=== PATIENT | male | born 1940 | race Caucasian/White ===

== ENCOUNTER 2022-02-09 15:48 | Inpatient (IN) | payer OTHER ==
[~2022-02-09] VITALS: Ht 172.7 cm; Wt 103.9 kg
[2022-02-09 16:45] LABS: BASOPHILS ABSOLUTE AUTO 0.04 K/mm3 (0.00-0.23); BASOPHILS PERCENT AUTO 0 % (0-2); EOSINOPHILS PERCENT AUTO 0 % (0-6); Hematocrit 36.2 % (37.0-53.0); Hemoglobin 13.3 g/dL (13.5-17.5); IMMATURE GRAN ABSOLUTE AUTO 0.13 K/mm3 (0.00-0.10); IMMATURE GRAN PERCENT AUTO 1 % (0-1); LYMPHOCYTES ABSOLUTE AUTO 0.52 K/mm3 (0.84-5.20); LYMPHOCYTES PERCENT AUTO 2 % (21-46); MONOCYTES ABSOLUTE AUTO 0.93 K/mm3 (0.16-1.47); MONOCYTES PERCENT AUTO 4 % (4-13); Mean Corpuscular HGB 35.5 pg (26.0-34.0); Mean Corpuscular HGB Conc 36.7 g/dL (31.5-36.5); Mean Corpuscular Volume 97 fL (80-100); Mean Platelet Volume 9.1 fL (9.1-12.4); NEUTROPHILS ABSOLUTE AUTO 20.97 K/mm3 (1.96-9.15); NEUTROPHILS PERCENT AUTO 93 % (41-73); Platelet Count 287 K/mm3 (150-400); RDW Coefficient Variation 12.2 % (11.7-14.2); RDW Standard Deviation 43.4 fL (35.1-46.3); Red Blood Cell Count 3.75 M/mm3 (4.30-5.90); White Blood Cell Count 22.59 K/mm3 (4.00-11.30)
[2022-02-09 16:58] LABS: Alanine Aminotransfer (ALT/SGP 29 U/L (12-78); Albumin, Blood 3.5 g/dL (3.4-5.0); Albumin/Globulin Ratio 0.9 (0.8-1.8); Alk Phos 74 U/L (50-136); Anion Gap 7 mmol/L (6-16); Aspartate Aminotrans (AST/SGOT 28 U/L (12-37); Bilirubin, Total 1.4 mg/dL (0.1-1.0); Blood Urea Nitrogen 13 mg/dL (8-24); Bun/Creatinine Ratio 14.6 (12.0-20.0); CO2, Blood 23 mmol/L (21-32); Calcium, Blood 8.6 mg/dL (8.5-10.1); Chloride, Blood 93 mmol/L (98-108); Creatinine, Blood 0.89 mg/dL (0.60-1.20); Globulin, Blood 3.9 g/dL (2.2-4.0); Glomerular Filtration Rate >60 (60-); Glucose, Blood 119 mg/dL (70-99); Potassium, Blood 4.7 mmol/L (3.5-5.5); Sodium, Blood 123 mmol/L (136-145); Total Protein, Blood 7.4 g/dL (6.4-8.2)
[2022-02-09 20:38] LABS: Source, Urine Clean Catch
[2022-02-09 20:40] LABS: Appearance, Urine Clear (Clear); Bilirubin, Urine Neg (Neg); Blood, Urine Neg (Neg); Color, Urine Yellow (P-Yellow); Glucose Qualitative, Urine Neg (Neg); Ketones, Urine 1+ (Neg); Leukocyte Esterase, Urine Neg (Neg); Nitrite, Urine Neg (Neg); Protein, Urine 1+ (Neg); Specific Gravity, Urine 1.015 (1.003-1.022); Urobilinogen, Urine NORM (Normal)
[2022-02-09] MEDS ORDERED: LOSA50 PO (23:44)
[2022-02-09] MEDS ORDERED: METO50ER PO (23:44)
--- NOTE | 2022-02-10 00:31 | NUR ---
ADMIT NOTE HANDOFF RECEIVED FROM [employer] REPRESENTATIVELOLITA AGUILAR. PT ARRIVED TO FLOOR VIA GURNEY. PT ORIENTED TO UNIT. TELEMETRY IN PLACE. CALL BUTTON WITHIN REACH
[2022-02-10 01:24] LABS: Influenza A, PCR NEGATIVE (NEGATIVE); Influenza B, PCR NEGATIVE (NEGATIVE); Resp Syncytial Virus, PCR NEGATIVE (NEGATIVE); SARS-Cov-2 (COVID-19) PCR, MMC NEGATIVE (NEGATIVE)
--- NOTE | 2022-02-10 04:04 | NUR ---
SHIFT SUMMARY ADMITTED FOR ACUTE CHF, POSSIBLE PNEUMONIA. FULL CODE. PLAN IS TO [facility]. TELEMETRY IN PLACE: NSR @ 92 BPM. HE IS WEAK. SOB W/EXERTION. CARDIAC DIET. IV ANTIB RX ARE SCHEDULED. LYMPHADEMA IN BLE. CIWA CHECKS Q4 HOURS. HE DOES HAVE SEVERE TREMORS BUT HE STATES THAT IS HIS BASELINE. HE DENIES OTHER S/SX.
[2022-02-10 05:03] LABS: BASOPHILS ABSOLUTE AUTO 0.03 K/mm3 (0.00-0.23); BASOPHILS PERCENT AUTO 0 % (0-2); EOSINOPHILS PERCENT AUTO 1 % (0-6); Hematocrit 32.1 % (37.0-53.0); Hemoglobin 11.4 g/dL (13.5-17.5); IMMATURE GRAN ABSOLUTE AUTO 0.23 K/mm3 (0.00-0.10); IMMATURE GRAN PERCENT AUTO 1 % (0-1); LYMPHOCYTES ABSOLUTE AUTO 0.46 K/mm3 (0.84-5.20); LYMPHOCYTES PERCENT AUTO 2 % (21-46); MONOCYTES ABSOLUTE AUTO 0.76 K/mm3 (0.16-1.47); MONOCYTES PERCENT AUTO 4 % (4-13); Mean Corpuscular HGB 35.4 pg (26.0-34.0); Mean Corpuscular HGB Conc 35.5 g/dL (31.5-36.5); Mean Corpuscular Volume 100 fL (80-100); Mean Platelet Volume 9.5 fL (9.1-12.4); NEUTROPHILS ABSOLUTE AUTO 19.77 K/mm3 (1.96-9.15); NEUTROPHILS PERCENT AUTO 93 % (41-73); Platelet Count 250 K/mm3 (150-400); RDW Coefficient Variation 12.7 % (11.7-14.2); RDW Standard Deviation 46.4 fL (35.1-46.3); Red Blood Cell Count 3.22 M/mm3 (4.30-5.90); White Blood Cell Count 21.35 K/mm3 (4.00-11.30)
[2022-02-10 05:31] LABS: Anion Gap 8 mmol/L (6-16); Blood Urea Nitrogen 14 mg/dL (8-24); CO2, Blood 22 mmol/L (21-32); Calcium, Blood 7.9 mg/dL (8.5-10.1); Chloride, Blood 95 mmol/L (98-108); Creatinine, Blood 0.94 mg/dL (0.60-1.20); Glomerular Filtration Rate >60 (60-); Glucose, Blood 113 mg/dL (70-99); Potassium, Blood 4.5 mmol/L (3.5-5.5); Sodium, Blood 125 mmol/L (136-145)
[2022-02-10] MEDS ORDERED: AMLO10 PO (15:22)
--- NOTE | 2022-02-10 16:56 | NUR ---
SUMMARY- PT A/O X4. BASELINE HAD TREMORS. CIWAA ASSESSED T/O SHIFT, MEDICATED ONE TIME WITH ATIVAN 1MG, HELPFUL WITH ANXIETY. PT AMBULATES SBA WITH WALKER. WORKED WITH PT/OT TODAY. LEGS WITH SEVERE EDEMA. PLACED RAUL HOSE. STARTED LASIX, DIURESING PT. LUNGS CLEAR BUT HAS MILD SOB WITH EXERTION. TOLERATING PO INTAKE, HAD BM TODEY. USES URINAL. USES CALL LIGHT APPROPRIATELY, KNOWS LIMITS.
--- NOTE | 2022-02-11 04:35 | NUR ---
SHIFT SUMMARY ADMITTED FOR NEW DX OF CHF. FULL CODE. ALSO POSSIBLE PNEUMONIA/SEPSIS. PLAN IS TO [facility]. CURRY'S Q4. TREMORS HAVE IMPROVED THIS SHIFT. DENIES ANXIETY THIS SHIFT. STANDBY ASSIST - BRP. TYLENOL GIVEN FOR CHRONIC LEG PAIN - HE HAS LYMPHODEMA. HE ALLOWED US TO PUT ON RAUL HOSE, BUT ONLY FOR A SHORT TIME. IV ANTIB RX ARE SCHEDULED. HE IS A&O X4. HE IS PLEASANT AND COOPERATIVE W/CARE. HE STATES HE HAS AN ONGOING PROBLEM W/DYSURIA, FREQUENCY, URGENCY.
[2022-02-11 05:16] LABS: Hematocrit 34.1 % (37.0-53.0); Hemoglobin 12.1 g/dL (13.5-17.5); Mean Corpuscular HGB 35.1 pg (26.0-34.0); Mean Corpuscular HGB Conc 35.5 g/dL (31.5-36.5); Mean Corpuscular Volume 99 fL (80-100); Mean Platelet Volume 9.3 fL (9.1-12.4); Platelet Count 243 K/mm3 (150-400); RDW Coefficient Variation 12.5 % (11.7-14.2); RDW Standard Deviation 45.6 fL (35.1-46.3); Red Blood Cell Count 3.45 M/mm3 (4.30-5.90); White Blood Cell Count 13.53 K/mm3 (4.00-11.30)
[2022-02-11 05:43] LABS: Anion Gap 10 mmol/L (6-16); Blood Urea Nitrogen 17 mg/dL (8-24); Bun/Creatinine Ratio 20.6 (12.0-20.0); CO2, Blood 23 mmol/L (21-32); Calcium, Blood 8.1 mg/dL (8.5-10.1); Chloride, Blood 96 mmol/L (98-108); Creatinine, Blood 0.82 mg/dL (0.60-1.20); Glomerular Filtration Rate >60 (60-); Glucose, Blood 106 mg/dL (70-99); Magnesium, Blood 1.9 mg/dL (1.6-2.4); Potassium, Blood 3.7 mmol/L (3.5-5.5); Sodium, Blood 129 mmol/L (136-145)
--- NOTE | 2022-02-11 06:10 | NUR ---
CALLED HOSPITALIST NOTIFIED HIM THAT PT HAS CONVERTED INTO AFIB OF 7 HRS. HE WAS PREVIOUSLY IN THE 130'S BPM, NOW IN 113'S. HOSPITALIST ASKS ME TO CONTINUE TO MONITOR.
--- NOTE | 2022-02-11 18:25 | NUR ---
PT IS A/OX4, PLEASANT AND COOPERATIVE. PT IS UP WITH ASSIST TO THE CHAIR AND TO THE BATHROOM. PT DENIED C/P OR ANY OTHER PAIN T/O THE DAY. PT APPEARS TO BE BREATHING EASILY ON RA AT THIS TIME. THE PT HAS LE'S EDEMA LEFT LEG GREATER THAN THE RIGHT AND HAS REDNESS. PT HAD FINE CRACKLES HEARD IN BREATH SOUNDS THIS AM. THE PT HAS BEEN UP TO THE CHAIR FOR MEALS. CALL LIGHT IN REACH, WILL CONTINUE TO MONITOR AND ASSESS FOR CHANGES
[2022-02-12 04:56] LABS: Hematocrit 31.6 % (37.0-53.0); Hemoglobin 11.1 g/dL (13.5-17.5); Mean Corpuscular HGB Conc 35.1 g/dL (31.5-36.5); Mean Corpuscular Volume 100 fL (80-100); Mean Platelet Volume 9.4 fL (9.1-12.4); Platelet Count 257 K/mm3 (150-400); RDW Coefficient Variation 12.5 % (11.7-14.2); RDW Standard Deviation 46.3 fL (35.1-46.3); Red Blood Cell Count 3.17 M/mm3 (4.30-5.90); White Blood Cell Count 11.26 K/mm3 (4.00-11.30)
[2022-02-12 05:14] LABS: Anion Gap 7 mmol/L (6-16); Blood Urea Nitrogen 18 mg/dL (8-24); Bun/Creatinine Ratio 21.3 (12.0-20.0); CO2, Blood 25 mmol/L (21-32); Calcium, Blood 8.2 mg/dL (8.5-10.1); Chloride, Blood 98 mmol/L (98-108); Creatinine, Blood 0.85 mg/dL (0.60-1.20); Glomerular Filtration Rate >60 (60-); Glucose, Blood 98 mg/dL (70-99); Potassium, Blood 3.7 mmol/L (3.5-5.5); Sodium, Blood 130 mmol/L (136-145)
--- NOTE | 2022-02-12 06:34 | NUR ---
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 LT LE edema 4 plus redness pain. Lt le 3 plus edema with no redness. PT wears custom compression socks bilat le from [facility] but he has not been wearing them recently. PT agreeable to rama wrap over soft padding & elevated lower extremities. Medicated for s/sx of eth withdrawl 50 mg librium with good effect. Room air voids.
--- NOTE | 2022-02-12 18:27 | NUR ---
SHIFT SUMMARY- ASSUMED CARE OF THIS PT AT 1400. HE SLEPT FOR MOST OF THIS SHIFT. HE AWOKE ONCE AND USED THE BEDSIDE URINAL. REPORTED SOME CONFUSION UPON AWAKENING. CIWA WAS STABLE. HIS BED IS IN THE LOW POSITION AND CALL LIGHT IS WITIN REACH.
[2022-02-13 05:55] LABS: Anion Gap 8 mmol/L (6-16); Blood Urea Nitrogen 16 mg/dL (8-24); Bun/Creatinine Ratio 20.5 (12.0-20.0); CO2, Blood 25 mmol/L (21-32); Calcium, Blood 8.4 mg/dL (8.5-10.1); Chloride, Blood 101 mmol/L (98-108); Creatinine, Blood 0.78 mg/dL (0.60-1.20); Glomerular Filtration Rate >60 (60-); Glucose, Blood 103 mg/dL (70-99); Potassium, Blood 3.7 mmol/L (3.5-5.5); Sodium, Blood 134 mmol/L (136-145)
--- NOTE | 2022-02-13 17:18 | NUR ---
PT IS A/OX4, PLEASANT AND COOPERATIVE. UP WITH MINIMAL ASSIST TO THE BATHROOM AND THE BSC. THE APPEARS TO BE BREATHING EASILY ON RA AND REPORTS BREATHING EASIER SINCE ADMISSION. THE PT CONTINUES TO HAVE 4+ EDEMA AND REDNESS IN HIS LEFT LOWER EXTREMITY. THE ZANDRA WRAP WAS REMOVED THIS AFTERNOON AND PT LE'S ELEVATED ON PILLOWS. PT WAS GIVEN LIBRIUM THIS AFTER NOON FOR TREMORS. THE PT IS UP IN THE CHAIR AT THIS TIME. CALL LIGHT IN REACH. WILL CONTINUE TO MONITOR AND ASSESS FOR CHANGES
[2022-02-14] MEDS ORDERED: METO50 PO (10:56)
[2022-02-14] MEDS ORDERED: FURO40 PO (10:57)
[2022-02-14] MEDS ORDERED: POTA10T PO (10:58)
--- NOTE | 2022-02-14 14:57 | NUR ---
PATIENT DISCHARGED TO HOME WITH FRIEND. IV SALINE LOCK AND TELEMETRY REMOVED. VERBALIZED UNDERSTANDING OF D/C INSTRUCTIONS, WILL FOLLOW UP WITH [facility] UNTIL HE CAN SEE HIS NEW PCP IN MARCH 2022. OFF UNIT VIA W/C AT 1437. NO BELONGINGS LEFT BEHIND IN ROOM.
== END 2022-02-14 14:51 | disposition home health service (06) | DRG 871 ==
LOC: ER 15:48 → MEDS 23:08
PROVIDERS: Emergency Medicine; Internal Medicine; Physician Assistant; ADMIT Family Medicine
PROC: 3E03329 Introduction of Other Anti-infective into Peripheral Vein, Percutaneous Approach (ICD-10-PCS; principal; 2022-02-09)
PROC: HZ2ZZZZ Detoxification Services for Substance Abuse Treatment (ICD-10-PCS; 2022-02-09)
DX: A41.9 Sepsis, unspecified organism (principal); J96.01 Acute respiratory failure with hypoxia; I50.31 Acute diastolic (congestive) heart failure; J18.0 Bronchopneumonia, unspecified organism; E87.1 Hypo-osmolality and hyponatremia; F10.239 Alcohol dependence with withdrawal, unspecified; Z20.822 Contact with and (suspected) exposure to COVID-19; R29.6 Repeated falls; I48.91 Unspecified atrial fibrillation; D64.9 Anemia, unspecified; G62.9 Polyneuropathy, unspecified; I11.0 Hypertensive heart disease with heart failure; Z71.41 Alcohol abuse counseling and surveillance of alcoholic; Z28.21 Immunization not carried out because of patient refusal
CPT/HCPCS: 0241U; 36415; 70450; 71045; 71260; 80048; 80053; 83605; 83735; 83880; 84484; 85025; 85027; 87040; 93005; 93010; 93306; 93971; 96365; 96375; 97110; 97116; 97162; 97165; 97530; 97530-CQ; 97535; 99285-25; A9270; J0456; J0696; J1650; J1940; J2060; J2270; J2405; J7050; Q9967

== ENCOUNTER 2023-05-05 06:08 | Day surgery (SDC) | payer OTHER ==
[~2023-05-05] VITALS: Ht 175.3 cm; Wt 80.3 kg
[~2023-05-05 06:08] MED LIST: AMLO10 PO; FURO40 PO; LOSA50 PO; METO50 PO; METO50ER PO; POTA10T PO
[2023-05-05] MEDS ORDERED: LOSA50 PO (06:31)
[2023-05-05] MEDS ORDERED: AMLO10 PO (06:32)
[2023-05-05] MEDS ORDERED: ELIQUIS5 M2 PO (06:33)
--- NOTE | 2023-05-05 06:37 | NUR ---
05/05/23 0637 Zahira Parra AT 0635 P[place]LE[place] AT [id number]
[2023-05-05 08:00] VITALS: BP 138/58
== END 2023-05-05 11:44 | disposition home or self-care (01) ==
LOC: ORSCSDS 06:08
PROVIDERS: Ophthalmology
PROC: 08RK3JZ Replacement of Left Lens with Synthetic Substitute, Percutaneous Approach (ICD-10-PCS; principal; 2023-05-05 07:30)
DX: H25.13 Age-related nuclear cataract, bilateral (principal); H21.81 Floppy iris syndrome; I10 Essential (primary) hypertension; I50.9 Heart failure, unspecified; I25.10 Atherosclerotic heart disease of native coronary artery without angina pectoris; Z79.899 Other long term (current) drug therapy
CPT/HCPCS: J2001; J2250; J3010; J3301; J7040; V2632

== ENCOUNTER 2024-11-04 11:10 | Emergency (ER) | payer OTHER ==
[~2024-11-04] VITALS: Ht 175.3 cm; Wt 77.1 kg
[~2024-11-04 11:10] MED LIST changes: +ELIQUIS5 M2 PO
[2024-11-04 11:48] LABS: BASOPHILS ABSOLUTE AUTO 0.03 K/mm3 (0.00-0.23); BASOPHILS PERCENT AUTO 0 % (0-2); EOSINOPHILS ABSOLUTE AUTO 0.08 K/mm3 (0.00-0.68); EOSINOPHILS PERCENT AUTO 1 % (0-6); Hemoglobin 13.1 g/dL (13.5-17.5); IMMATURE GRAN ABSOLUTE AUTO 0.01 K/mm3 (0.00-0.10); IMMATURE GRAN PERCENT AUTO 0 % (0-1); LYMPHOCYTES ABSOLUTE AUTO 1.06 K/mm3 (0.84-5.20); LYMPHOCYTES PERCENT AUTO 16 % (21-46); MONOCYTES ABSOLUTE AUTO 0.63 K/mm3 (0.16-1.47); MONOCYTES PERCENT AUTO 9 % (4-13); Mean Corpuscular HGB 33.6 pg (26.0-34.0); Mean Corpuscular HGB Conc 36.4 g/dL (31.5-36.5); Mean Corpuscular Volume 92 fL (80-100); Mean Platelet Volume 9.2 fL (9.1-12.4); NEUTROPHILS PERCENT AUTO 73 % (41-73); Platelet Count 241 K/mm3 (150-400); RDW Coefficient Variation 12.2 % (11.7-14.2); RDW Standard Deviation 41.2 fL (35.1-46.3); White Blood Cell Count 6.71 K/mm3 (4.00-11.30)
[2024-11-04 12:07] LABS: Albumin, Blood 3.5 g/dL (3.4-5.0); Albumin/Globulin Ratio 1.2 (0.8-1.8); Bilirubin, Total 0.8 mg/dL (0.1-1.0); Calcium, Blood 8.3 mg/dL (8.5-10.1); Creatinine, Blood 0.76 mg/dL (0.60-1.20); Globulin, Blood 2.9 g/dL (2.2-4.0); Potassium, Blood 4.5 mmol/L (3.5-5.5); Total Protein, Blood 6.4 g/dL (6.4-8.2)
[2024-11-04] MEDS ORDERED: FURO20 PO ×3 (12:48→14:45)
[2024-11-04] MEDS ORDERED: Furosemide 20 MG Tab PO ONE (12:50)
[2024-11-04 13:16] VITALS: BP 142/75
== END 2024-11-04 13:25 | disposition home or self-care (01) ==
LOC: ER 11:10
PROVIDERS: Emergency Medicine
DX: I11.0 Hypertensive heart disease with heart failure (principal); I50.9 Heart failure, unspecified; I25.10 Atherosclerotic heart disease of native coronary artery without angina pectoris; I48.91 Unspecified atrial fibrillation; Z79.899 Other long term (current) drug therapy; Z79.01 Long term (current) use of anticoagulants
CPT/HCPCS: 71045; 80053; 83880; 84484; 85025; 93005; 93010; 99284-25; A9270